=== PATIENT | female | born 1945 | race African-American/Black ===

== ENCOUNTER 2023-03-03 17:22 | Emergency (ER) | payer OTHER, MEDICAID ==
[~2023-03-03] VITALS: Ht 157.5 cm; Wt 63.5 kg
[2023-03-03 17:27] VITALS: BP 183/97
[2023-03-03] MEDS ORDERED: DILTIAZEM 25 MG/5 ML VIAL IVP ONE (17:30)
[2023-03-03 18:05] LABS: BASOPHILS # (AUTO) 0.1 K/uL (0.00-0.22); BASOPHILS % (AUTO) 0.9 % (0.0-2.0); EOSINOPHILS # (AUTO) 0.2 K/uL (0-0.4); EOSINOPHILS % (AUTO) 2.5 % (0.0-4.0); HEMATOCRIT 43.4 % (36-48); HEMOGLOBIN 14.6 g/dL (12.0-16.0); LYMPHOCYTES # (AUTO) 2.2 K/uL (2.5-16.5); LYMPHOCYTES % (AUTO) 27.2 % (20.5-51.1); MEAN CORPUSCULAR HEMOGLOBIN 31 pg (27-31); MEAN CORPUSCULAR HGB CONC 34 g/dL (33-37); MEAN CORPUSCULAR VOLUME 92.1 fL (80-94); MONOCYTES # (AUTO) 0.6 K/uL (0.8-1.0); MONOCYTES % (AUTO) 7.6 % (1.7-9.3); NEUTROPHILS # (AUTO) 5.1 K/uL (1.8-7.7); NEUTROPHILS % (AUTO) 61.8 % (42.2-75.2); PLATELET COUNT (AUTO) 224 K/uL (140-450); RED BLOOD CELL COUNT(AUTO) 4.71 MIL/uL (4.20-5.40); RED CELL DISTRIBUTION WIDTH 13.8 % (11.6-13.7); WHITE BLOOD COUNT (AUTO) 8.2 K/uL (4.8-10.8)
[2023-03-03 18:17] LABS: PROTHROMBIN TIME 11.6 secs (10.8-13.4)
[2023-03-03 18:49] LABS: MAGNESIUM 1.7 mg/dL (1.8-2.4); PHOSPHORUS 2.3 mg/dL (2.5-4.9)
--- NOTE | 2023-03-03 19:00 | NUR ---
daughter at the bedside
--- NOTE | 2023-03-03 19:00 | NUR ---
CALLED 911 FOR HIGH BP, DENIES S/S. HC=680. ONLY TAKES ELIQUIS AND AMLODIPINE
[2023-03-03 19:02] LABS: ALBUMIN 3.8 g/dL (3.4-5.0); ASPARTATE AMINOTRANSFERASE 23 U/L (15-37); CARBON DIOXIDE 29.7 mmol/L (21-32); CHLORIDE 103 mmol/L (98-107); CREATININE 0.9 mg/dL (0.6-1.3); GLUCOSE 122 mg/dL (74-106); POTASSIUM 3.7 mmol/L (3.5-5.1); SODIUM SERUM 142 mmol/L (136-145); TOTAL BILIRUBIN 0.4 mg/dL (0.0-1.0); UREA NITROGEN, BLOOD 16 mg/dL (7-18)
[2023-03-03] MEDS ORDERED: MAG SULF 2000 MG/WATER PREMIX 50 ML IV ONE (19:25)
[2023-03-03] MEDS ORDERED: SODIUM PHOS / POTASSIUM PHOS 1 PKT PDR PO ONE (19:25)
--- NOTE | 2023-03-03 19:25 | NUR ---
Pt report given to reji Batres. Transfer of care at this time.
--- NOTE | 2023-03-03 20:00 | NUR ---
pt is hungry and wanted to get food. MARLINE Robin is notified.
[2023-03-03] MEDS ORDERED: METOPROLOL SUCCINATE 50 MG TABER PO SCH (20:10)
--- NOTE | 2023-03-03 21:00 | NUR ---
pt asked if she could take her regular meds
[2023-03-03 23:40] VITALS: BP 140/68
--- NOTE | 2023-03-03 23:40 | NUR ---
Patient discharged with v/s stable. Written and verbal after care instructions given and explained to parent/guardian. Parent/Guardian verbalized understanding. Ambulatorysteady gait. All questions addressed prior to discharge. Advised to follow up with PMD. pt left with daughter and left her belongings.
== END 2023-03-03 23:40 | disposition home or self-care (01) ==
LOC: MED 17:22
DX: I48.20 Chronic atrial fibrillation, unspecified (principal); E83.42 Hypomagnesemia; E83.39 Other disorders of phosphorus metabolism; E11.9 Type 2 diabetes mellitus without complications; I10 Essential (primary) hypertension; Z88.5 Allergy status to narcotic agent; Z79.899 Other long term (current) drug therapy; Z85.3 Personal history of malignant neoplasm of breast; Z98.890 Other specified postprocedural states; Z95.1 Presence of aortocoronary bypass graft
CPT/HCPCS: 36415; 71045; 80053; 83735; 83880; 84100; 84484; 85025; 85610; 85730; 96374; 96375; 99285; J3475; J3490